=== PATIENT | male | born 2000 | race Caucasian/White ===

== ENCOUNTER 2019-03-27 19:55 | Emergency (ER) | payer OTHER, SELFPAY ==
[2019-03-27 20:12] VITALS: BP 148/99; PULSE 90; RESP 18; TEMP 36.8; O2SAT 98; BMI 22.2
[2019-03-27 20:17] VITALS: BP 148/99; PULSE 90; RESP 18; TEMP 36.8; O2SAT 98; BMI 22.2
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
[2019-03-27 20:37] VITALS: BP 148/99; PULSE 90; RESP 18; TEMP 36.8; O2SAT 98
== END 2019-03-27 20:39 | disposition home or self-care (01) ==
LOC: UTC 20:31
PROVIDERS: Emergency Provider Physician Assistant
DX: S39.012A Strain of muscle, fascia and tendon of lower back, initial encounter (principal); V89.2XXA Person injured in unspecified motor-vehicle accident, traffic, initial encounter; F17.290 Nicotine dependence, other tobacco product, uncomplicated
CPT/HCPCS: 99201